=== PATIENT | male | born 1975 | race Caucasian/White ===

== ENCOUNTER 2016-03-10 16:48 | Emergency (ER) | payer OTHER ==
[2016-03-10] MEDS ORDERED: OXYCODONE-ACETAMINOPHEN 5-325 MG TABLET PO ONE (17:58)
[2016-03-10] MEDS ORDERED: ONDANSETRON 4 MG TAB.RAPDIS PO ONE (17:58)
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
[2016-03-10 19:48] VITALS: BP 106/64
== END 2016-03-10 19:37 | disposition home or self-care (01) ==
LOC: ER 16:48
DX: S80.12XA Contusion of left lower leg, initial encounter (principal); S06.9X1A Unspecified intracranial injury with loss of consciousness of 30 minutes or less, initial encounter; M25.552 Pain in left hip; V23.4XXA Motorcycle driver injured in collision with car, pick-up truck or van in traffic accident, initial encounter
CPT/HCPCS: 99284; 73502; 73590; 70450; S0119